=== PATIENT | male | born 1955 | race Caucasian/White ===

== ENCOUNTER 2022-02-13 11:13 | Inpatient (IN) | payer OTHER ==
[2022-02-13] MEDS ORDERED: Furosemide 40 MG/4 ML VIAL IVPUSH ONE ×2 (11:47)
[2022-02-13 12:00] LABS: CARBON DIOXIDE,CO2 28.9 mmol/L (21.0-32.0)
[2022-02-13 12:21] LABS: CORONAVIRUS COVID-19 NAA NEGATIVE (NEGATIVE); INFLUENZA A NAA NEGATIVE (NEGATIVE); INFLUENZA B NAA NEGATIVE (NEGATIVE); RESPIRATORY SYNCYTIAL VIR NAA NEGATIVE (NEGATIVE)
[2022-02-13] MEDS ORDERED: Ondansetron 4 MG/2 ML SDV IVPUSH PRN (13:10)
[2022-02-13] MEDS ORDERED: Polyethylene Glycol 3350 Powder 17 GM Packet PO PRN (13:10)
[2022-02-13] MEDS ORDERED: Acetaminophen 325 MG Tab PO PRN (13:10)
[2022-02-13] MEDS ORDERED: Sodium Chloride 0.9% 10 ML Syringe FLUSH PRN (13:10)
[2022-02-13] MEDS ORDERED: Sodium Chloride 0.9% 2.5 ML Syringe FLUSH PRN (13:10)
[2022-02-13] MEDS ORDERED: Albuterol/Ipratropium 3.0-0.5 MG/3 ML Neb Soln NEB PRN (13:10)
[2022-02-13] MEDS ORDERED: Non-Formulary Medication 1 Each (Rosuvastatin 20 MG Tablet) PO SCH (13:15)
[2022-02-13] MEDS ORDERED: Glucagon,Human Recombinant 1 MG Vial IM PRN (13:51)
[2022-02-13] MEDS ORDERED: 50% Dextrose in Water 50 ML Syringe IVPUSH PRN (13:51)
[2022-02-13] MEDS: Furosemide 40 MG/4 ML VIAL IVPUSH SCH (16:09)
[2022-02-13] MEDS: Insulin Aspart 100 Units/ML 3 ML Pen SUBCUT SCH (17:34)
[2022-02-13] MEDS: Enoxaparin 40 MG/0.4 ML Syringe SUBCUT SCH (20:15)
[2022-02-14 06:46] LABS: CARBON DIOXIDE,CO2 28.4 mmol/L (21.0-32.0); POTASSIUM,K 3.4 mmol/L (3.5-5.1)
[2022-02-14] MEDS ORDERED: Potassium Chloride 20 MEQ Tab.ER PO ONE (07:40)
[2022-02-14] MEDS: Losartan 50 MG Tab PO SCH (08:20)
[2022-02-14] MEDS: amLODIPine 5 MG Tab PO SCH (08:20)
[2022-02-14] MEDS: Furosemide 40 MG/4 ML VIAL IVPUSH SCH ×2 (08:21→14:17)
[2022-02-14] MEDS: Metoprolol Tartrate 50 MG Tab PO SCH (08:21)
[2022-02-14] MEDS: Insulin Aspart 100 Units/ML 3 ML Pen SUBCUT SCH ×3 (10:08→18:43)
[2022-02-14] MEDS ORDERED: Benzonatate 100 MG Cap PO PRN (14:39)
[2022-02-14] MEDS ORDERED: Melatonin 3 MG Tab PO PRN (14:39)
[2022-02-14] MEDS ORDERED: traZODone 50 MG Tab PO PRN (14:40)
[2022-02-14] MEDS: Rosuvastatin 10 MG Tab PO SCH (21:14)
[2022-02-14] MEDS: Enoxaparin 40 MG/0.4 ML Syringe SUBCUT SCH (21:14)
[2022-02-15 06:25] LABS: CARBON DIOXIDE,CO2 28.2 mmol/L (21.0-32.0); POTASSIUM,K 3.8 mmol/L (3.5-5.1)
[2022-02-15] MEDS: Insulin Aspart 100 Units/ML 3 ML Pen SUBCUT SCH ×3 (07:27→17:30)
[2022-02-15] MEDS: Furosemide 40 MG/4 ML VIAL IVPUSH SCH ×3 (07:41→21:24)
[2022-02-15] MEDS: Losartan 50 MG Tab PO SCH (09:15)
[2022-02-15] MEDS: Metoprolol Tartrate 50 MG Tab PO SCH (09:15)
[2022-02-15] MEDS: amLODIPine 5 MG Tab PO SCH (09:15)
[2022-02-15] MEDS: Pantoprazole 40 MG Tab.CR PO SCH (10:17)
[2022-02-15] MEDS: Fluticasone NASAL Spray 16 GM Bottle NASBOTH SCH ×2 (10:17→21:21)
[2022-02-15] MEDS: Rosuvastatin 10 MG Tab PO SCH (21:20)
[2022-02-15] MEDS: Enoxaparin 40 MG/0.4 ML Syringe SUBCUT SCH (21:22)
[2022-02-16] MEDS: Furosemide 40 MG/4 ML VIAL IVPUSH SCH (05:56)
[2022-02-16 06:46] LABS: CARBON DIOXIDE,CO2 30.3 mmol/L (21.0-32.0); POTASSIUM,K 3.5 mmol/L (3.5-5.1)
[2022-02-16] MEDS: Insulin Aspart 100 Units/ML 3 ML Pen SUBCUT SCH ×2 (07:00→12:53)
[2022-02-16 08:12] VITALS: BP 133/95; PULSE 69
[2022-02-16] MEDS: amLODIPine 5 MG Tab PO SCH (08:15)
[2022-02-16] MEDS: Metoprolol Tartrate 50 MG Tab PO SCH (08:15)
[2022-02-16] MEDS: Pantoprazole 40 MG Tab.CR PO SCH (08:16)
[2022-02-16] MEDS: Fluticasone NASAL Spray 16 GM Bottle NASBOTH SCH (08:16)
[2022-02-16] MEDS: Losartan 50 MG Tab PO SCH (08:16)
== END 2022-02-16 12:30 | disposition home or self-care (01) | DRG 641 ==
LOC: MW.ED 11:13 → MW.MS 13:04 → OBSVTOIN 02-14 12:55 → MW.MS 02-14 12:56
PROVIDERS: ADMIT Internal Medicine; ATTEND Internal Medicine
DX: E87.70 Fluid overload, unspecified (principal); I11.0 Hypertensive heart disease with heart failure; I50.9 Heart failure, unspecified; E78.5 Hyperlipidemia, unspecified; E78.00 Pure hypercholesterolemia, unspecified; E11.9 Type 2 diabetes mellitus without complications; Z20.822 Contact with and (suspected) exposure to COVID-19; Z79.82 Long term (current) use of aspirin; Z86.73 Personal history of transient ischemic attack (TIA), and cerebral infarction without residual deficits; Z79.899 Other long term (current) drug therapy; Z79.84 Long term (current) use of oral hypoglycemic drugs; Z90.49 Acquired absence of other specified parts of digestive tract
CPT/HCPCS: 0241U; 36415; 71045; 71045-26; 80048; 80053; 80061; 81003; 82044; 82947; 83036; 83735; 83880; 84100; 84443; 84484; 85025; 85610; 93005; 93010; 93307; 96372; 96374; 96376; 99222; 99232; 99239; 99284; 99285-25; A9270-GY; G0378; J1650; J1940